=== PATIENT | male | born 1950 | race African-American/Black ===

== ENCOUNTER 2022-07-17 11:10 | Inpatient (IN) | payer MEDICARE, MEDICAID ==
[~2022-07-17] VITALS: Ht 182.9 cm; Wt 119.0 kg
[2022-07-17] MEDS ORDERED: SODIUM CHLORIDE 0.9% 1000ML BAG (SEPSIS BOLUS) IV ONE (11:45)
[2022-07-17] MEDS ORDERED: ACETAMINOPHEN 650MG SUPP PR STA (13:38)
[2022-07-17] MEDS ORDERED: CEFEPIME HCL 1000MG/VIAL INJ IV STA (13:38)
[2022-07-17 13:42] LABS: HEMATOCRIT. 33.1 % (42.0-52.0); HEMOGLOBIN. 10.6 g/dL (14.0-18.0); MEAN CORPUSCULAR HEMOGLOBIN 28.8 pg (28.0-32.0); MEAN CORPUSCULAR VOLUME 90.3 fL (80.0-94.0); MEAN PLATELET VOLUME 8.6 fl (7.4-10.4); PLATELET 138 x1000/uL (130-400); RED BLOOD CELL COUNT 3.67 mill/uL (4.7-6.1); RED CELL DISTRIBUTION WIDTH 18.6 % (11.6-14.6)
[2022-07-17] MEDS ORDERED: VANCOMYCIN 1G PREMIX 200 ML IV ONE (13:45)
[2022-07-17 13:55] LABS: CLARITY URINE CLOUDY (CLEAR); COLOR URINE YELLOW (YELLOW); KETONES URINE NEGATIVE (NEGATIVE); LEUKOCYTE ESTERASE URINE 2+ (NEGATIVE); NITRITE URINE NEGATIVE (NEGATIVE); OCCULT BLOOD URINE 2+ (NEGATIVE); PROTEIN URINE 2+ (NEGATIVE); SPECIFIC GRAVITY URINE 1.016 (1.005-1.030)
[2022-07-17 13:57] LABS: INR 1.2; PROTHROMBIN TIME 12.5 sec (9.6-11.0)
[2022-07-17 14:00] LABS: PLATELET ESTIMATE NORMAL
[2022-07-17 14:02] LABS: CHLORIDE 103 mEq/L (98-107)
[2022-07-17] MEDS ORDERED: CEFEPIME 1,000 MG in DEXTROSE 5% WATER 50 ML IV SCH (14:30)
[2022-07-17] MEDS ORDERED: METOPROLOL TARTRATE 5MG/5ML VIAL IV SCH (15:45)
[2022-07-17] MEDS ORDERED: SODIUM CHLORIDE 0.9% 1,000 ML IV ONE (15:45)
[2022-07-17 16:52] LABS: BG BASE EXCESS 5.5 mmol/L (-2.0-2.0); BG CARBOXYHEMOGLOBIN 0.5 % (0.5-1.5); BG DEOXYHEMOGLOBIN 1.2 % (0.0-5.0); BG FRACTION INSPIRED OXYGEN 28; BG HCO3 ACT 29.5 mmol/L (22.0-26.0); BG METHEMOGLOBIN 0.3 % (0.0-1.5); BG OXYGEN SATURATION 98.8 % (92.0-98.5); BG PCO2 40.7 mmHg (35.0-45.0); BG PH 7.478 (7.350-7.450); BG PO2 134.3 mmHg (75.0-100.0); BG SAMPLE SITE LEFT BRACHIAL; BG TOTAL HEMOGLOBIN 11.6 g/dL (12.0-18.0); BG VENT MODE COOL AEROSOL
[2022-07-17] MEDS: SODIUM CHLORIDE 3% FOR INH 4ML UD NEB INH SCH ×2 (17:30→23:30)
[2022-07-17] MEDS: IPRATROPIUM BROMIDE (0.02%) 0.5MG/2.5ML NEB HHN SCH ×2 (17:53→20:18)
[2022-07-17 18:33] LABS: BG BASE EXCESS 4.2 mmol/L (-2.0-2.0); BG CARBOXYHEMOGLOBIN 0.5 % (0.5-1.5); BG DEOXYHEMOGLOBIN 1.5 % (0.0-5.0); BG FRACTION INSPIRED OXYGEN 40; BG HCO3 ACT 27.7 mmol/L (22.0-26.0); BG METHEMOGLOBIN 0.3 % (0.0-1.5); BG OXYGEN SATURATION 98.5 % (92.0-98.5); BG OXYHEMOGLOBIN 97.7 % (94.0-97.0); BG PCO2 37.4 mmHg (35.0-45.0); BG PH 7.488 (7.350-7.450); BG PO2 112.9 mmHg (75.0-100.0); BG SAMPLE SITE LEFT BRACHIAL; BG TOTAL HEMOGLOBIN 10.7 g/dL (12.0-18.0); BG VENT MODE PRVC
[2022-07-17] MEDS: ACETYLCYSTEINE 200MG/ML 20% VIAL 4ML INH SCH (22:00)
[2022-07-17] MEDS ORDERED: PIPERACILLIN/TAZOBACTAM 3.375 G in DEXTROSE 5% WATER 50 ML IV SCH (22:00)
[2022-07-17] MEDS: PIPERACILLIN/TAZOBACTAM 3.375 G in DEXTROSE 5% WATER 50 ML IV SCH (23:08)
[2022-07-18] MEDS: PIPERACILLIN/TAZOBACTAM 3.375 G in DEXTROSE 5% WATER 50 ML IV SCH ×3 (07:48→22:59)
[2022-07-18] MEDS: ACETYLCYSTEINE 200MG/ML 20% VIAL 4ML INH SCH ×2 (08:07→16:27)
[2022-07-18] MEDS: IPRATROPIUM BROMIDE (0.02%) 0.5MG/2.5ML NEB HHN SCH ×4 (08:12→21:06)
[2022-07-18] MEDS: SODIUM CHLORIDE 3% FOR INH 4ML UD NEB INH SCH ×2 (08:12→12:50)
[2022-07-18] MEDS ORDERED: ACETAMINOPHEN 650MG SUPP PR NR (08:30)
[2022-07-18 08:32] LABS: BG BASE EXCESS 6.1 mmol/L (-2.0-2.0); BG CARBOXYHEMOGLOBIN 1.4 % (0.5-1.5); BG DEOXYHEMOGLOBIN 0.7 % (0.0-5.0); BG FRACTION INSPIRED OXYGEN 40; BG HCO3 ACT 29.5 mmol/L (22.0-26.0); BG OXYGEN SATURATION 99.3 % (92.0-98.5); BG OXYHEMOGLOBIN 97.9 % (94.0-97.0); BG PCO2 37.8 mmHg (35.0-45.0); BG PO2 127.7 mmHg (75.0-100.0); BG SAMPLE SITE LEFT BRACHIAL; BG TOTAL HEMOGLOBIN 9.1 g/dL (12.0-18.0); BG VENT MODE VENT PRVC
[2022-07-18] MEDS ORDERED: DILTIAZEM HCL 5MG/ML 5ML VIAL IV ONE (09:15)
[2022-07-18] MEDS ORDERED: SODIUM CHLORIDE 0.9% 500 ML IV ONE (09:15)
[2022-07-18 09:30] VITALS: BP 97/54
[2022-07-18 14:00] VITALS: BP 117/99
[2022-07-18 16:00] VITALS: BP 105/55
[2022-07-18 16:31] LABS: HEMATOCRIT. 28.1 % (42.0-52.0); HEMOGLOBIN. 9.1 g/dL (14.0-18.0); MEAN CORPUSCULAR HEMOGLOBIN 29.2 pg (28.0-32.0); MEAN CORPUSCULAR VOLUME 90.4 fL (80.0-94.0); MEAN PLATELET VOLUME 9.4 fl (7.4-10.4); PLATELET 132 x1000/uL (130-400); RED BLOOD CELL COUNT 3.11 mill/uL (4.7-6.1); RED CELL DISTRIBUTION WIDTH 18.3 % (11.6-14.6)
[2022-07-18 16:57] LABS: CHLORIDE 109 mEq/L (98-107)
[2022-07-18] MEDS: ENOXAPARIN 120MG/0.8ML SYR SUBCUT SCH (17:17)
[2022-07-18] MEDS: VANCOMYCIN 1.25GM PMX (XELLIA) 250 ML IV SCH (17:18)
[2022-07-18 18:00] VITALS: BP 100/67
[2022-07-18 18:15] LABS: PLATELET ESTIMATE NORMAL
[2022-07-18] MEDS: DILTIAZEM HCL 30MG TABLET PO SCH (19:06)
[2022-07-18 20:00] VITALS: BP 115/61
[2022-07-18] MEDS: LEVETIRACETAM 500MG/5ML CUP GT SCH (21:21)
[2022-07-18] MEDS: METOPROLOL TARTRATE 25MG TABLET PO SCH (21:21)
[2022-07-18 22:00] VITALS: BP 102/72
[2022-07-19] VITALS (30 sets, daily range): BP systolic 90–125; BP diastolic 36–80
[2022-07-19] MEDS: SODIUM CHLORIDE 3% FOR INH 4ML UD NEB INH SCH ×3 (00:17→15:53)
[2022-07-19] MEDS: DILTIAZEM HCL 30MG TABLET PO SCH ×4 (00:17→17:03)
[2022-07-19] MEDS: ACETYLCYSTEINE 200MG/ML 20% VIAL 4ML INH SCH ×3 (00:20→15:53)
[2022-07-19] MEDS: IPRATROPIUM BROMIDE (0.02%) 0.5MG/2.5ML NEB HHN SCH ×6 (04:47→23:56)
[2022-07-19] MEDS: PIPERACILLIN/TAZOBACTAM 3.375 G in DEXTROSE 5% WATER 50 ML IV SCH ×3 (05:47→21:19)
[2022-07-19] MEDS: METOPROLOL TARTRATE 25MG TABLET PO SCH ×2 (09:00→21:00)
[2022-07-19] MEDS: ENOXAPARIN 120MG/0.8ML SYR SUBCUT SCH ×2 (11:23→21:18)
[2022-07-19] MEDS: LEVETIRACETAM 500MG/5ML CUP GT SCH ×2 (11:24→21:18)
[2022-07-19] MEDS: PANTOPRAZOLE SODIUM 40 MG/VIAL IV SCH (11:24)
[2022-07-19] MEDS: VANCOMYCIN 1.25GM PMX (XELLIA) 250 ML IV SCH (11:26)
[2022-07-19 11:28] LABS: HEMATOCRIT. 27.2 % (42.0-52.0); HEMOGLOBIN. 8.5 g/dL (14.0-18.0); MEAN CORPUSCULAR HEMOGLOBIN 28.8 pg (28.0-32.0); MEAN CORPUSCULAR VOLUME 92.4 fL (80.0-94.0); MEAN PLATELET VOLUME 9.9 fl (7.4-10.4); PLATELET 139 x1000/uL (130-400); RED BLOOD CELL COUNT 2.95 mill/uL (4.7-6.1); RED CELL DISTRIBUTION WIDTH 18.6 % (11.6-14.6)
[2022-07-19] MEDS ORDERED: SODIUM CHLORIDE 0.9% 500 ML IV ONE (12:30)
[2022-07-19] MEDS ORDERED: NOREPINEPHRINE 32 MG in DEXT 5% WATER 218 ML IV PRN (13:00)
[2022-07-19] MEDS ORDERED: IPRATROPIUM/ALBUTEROL 0.5-3(2.5)MG/3ML NEB HHN PRN (14:15)
[2022-07-19 23:09] LABS: PLATELET ESTIMATE NORMAL
[2022-07-20] VITALS (42 sets, daily range): BP systolic 104–149; BP diastolic 60–94
[2022-07-20] MEDS: ACETYLCYSTEINE 200MG/ML 20% VIAL 4ML INH SCH ×3 (00:04→14:00)
[2022-07-20] MEDS: SODIUM CHLORIDE 3% FOR INH 4ML UD NEB INH SCH ×3 (00:04→17:25)
[2022-07-20] MEDS: IPRATROPIUM BROMIDE (0.02%) 0.5MG/2.5ML NEB HHN SCH ×5 (05:12→20:15)
[2022-07-20] MEDS: PIPERACILLIN/TAZOBACTAM 3.375 G in DEXTROSE 5% WATER 50 ML IV SCH ×3 (06:30→21:24)
[2022-07-20] MEDS: DILTIAZEM HCL 30MG TABLET PO SCH ×5 (06:30→22:46)
[2022-07-20] MEDS: METOPROLOL TARTRATE 25MG TABLET PO SCH ×2 (08:19→20:31)
[2022-07-20] MEDS: LEVETIRACETAM 500MG/5ML CUP GT SCH ×2 (08:20→20:30)
[2022-07-20] MEDS: PANTOPRAZOLE SODIUM 40 MG/VIAL IV SCH (08:20)
[2022-07-20] MEDS: ENOXAPARIN 120MG/0.8ML SYR SUBCUT SCH ×2 (09:13→20:41)
[2022-07-20] MEDS ORDERED: LIDOCAINE HCL/PF 1% 10 MG/ML 5ML VIAL ONE (11:16)
[2022-07-20] MEDS: VANCOMYCIN 1.25GM PMX (XELLIA) 250 ML IV SCH (13:04)
[2022-07-20] MEDS ORDERED: ACETAMINOPHEN 650MG/20.3ML UDC GT PRN (17:30)
[2022-07-20] MEDS: METHYLPREDNISOLONE SOD SUCC 40 MG/ML VIAL IV SCH (20:05)
[2022-07-21] VITALS (14 sets, daily range): BP systolic 108–142; BP diastolic 59–87
[2022-07-21] MEDS: ACETYLCYSTEINE 200MG/ML 20% VIAL 4ML INH SCH ×3 (00:24→16:49)
[2022-07-21] MEDS: IPRATROPIUM BROMIDE (0.02%) 0.5MG/2.5ML NEB HHN SCH ×6 (00:24→20:27)
[2022-07-21] MEDS: METHYLPREDNISOLONE SOD SUCC 40 MG/ML VIAL IV SCH ×3 (03:44→20:18)
[2022-07-21] MEDS: PIPERACILLIN/TAZOBACTAM 3.375 G in DEXTROSE 5% WATER 50 ML IV SCH ×3 (05:00→21:57)
[2022-07-21] MEDS: DILTIAZEM HCL 30MG TABLET PO SCH ×4 (05:00→23:31)
[2022-07-21 07:54] LABS: HEMATOCRIT. 25.5 % (42.0-52.0); HEMOGLOBIN. 8.4 g/dL (14.0-18.0); MEAN CORPUSCULAR HEMOGLOBIN 29.2 pg (28.0-32.0); MEAN CORPUSCULAR VOLUME 89.2 fL (80.0-94.0); MEAN PLATELET VOLUME 9.4 fl (7.4-10.4); PLATELET 213 x1000/uL (130-400); RED BLOOD CELL COUNT 2.86 mill/uL (4.7-6.1); RED CELL DISTRIBUTION WIDTH 17.9 % (11.6-14.6)
[2022-07-21] MEDS: LEVETIRACETAM 500MG/5ML CUP GT SCH ×2 (09:08→20:18)
[2022-07-21] MEDS: PANTOPRAZOLE SODIUM 40 MG/VIAL IV SCH (09:08)
[2022-07-21] MEDS: METOPROLOL TARTRATE 25MG TABLET PO SCH ×2 (09:09→20:19)
[2022-07-21] MEDS: ENOXAPARIN 120MG/0.8ML SYR SUBCUT SCH ×2 (09:09→20:19)
[2022-07-21 10:40] LABS: CHLORIDE 109 mEq/L (98-107)
[2022-07-21 11:22] LABS: PLATELET ESTIMATE NORMAL
[2022-07-21] MEDS: VANCOMYCIN 1.25GM PMX (XELLIA) 250 ML IV SCH (12:12)
[2022-07-22] VITALS (12 sets, daily range): BP systolic 98–148; BP diastolic 59–98
[2022-07-22] MEDS: IPRATROPIUM BROMIDE (0.02%) 0.5MG/2.5ML NEB HHN SCH ×3 (00:40→08:30)
[2022-07-22] MEDS: ACETYLCYSTEINE 200MG/ML 20% VIAL 4ML INH SCH ×3 (00:40→16:20)
[2022-07-22] MEDS: METHYLPREDNISOLONE SOD SUCC 40 MG/ML VIAL IV SCH ×3 (03:36→20:00)
[2022-07-22] MEDS: DILTIAZEM HCL 30MG TABLET PO SCH ×3 (05:09→17:23)
[2022-07-22] MEDS: PIPERACILLIN/TAZOBACTAM 3.375 G in DEXTROSE 5% WATER 50 ML IV SCH ×3 (05:46→21:49)
[2022-07-22] MEDS ORDERED: VANCOMYCIN 1250MG in DEXTROSE 5% WATER 250ML IV SCH (06:00)
[2022-07-22] MEDS: LEVETIRACETAM 500MG/5ML CUP GT SCH ×2 (08:42→21:45)
[2022-07-22] MEDS: ENOXAPARIN 120MG/0.8ML SYR SUBCUT SCH ×2 (08:42→21:47)
[2022-07-22] MEDS: PANTOPRAZOLE SODIUM 40 MG/VIAL IV SCH (08:42)
[2022-07-22] MEDS: METOPROLOL TARTRATE 25MG TABLET PO SCH ×2 (08:43→21:00)
[2022-07-22] MEDS: IPRATROPIUM/ALBUTEROL 0.5-3(2.5)MG/3ML NEB HHN SCH ×2 (16:20→20:29)
[2022-07-23] VITALS (12 sets, daily range): BP systolic 98–141; BP diastolic 60–98
[2022-07-23] MEDS: IPRATROPIUM/ALBUTEROL 0.5-3(2.5)MG/3ML NEB HHN SCH ×2 (02:21→09:00)
[2022-07-23] MEDS: DILTIAZEM HCL 30MG TABLET PO SCH ×4 (06:46→17:58)
[2022-07-23] MEDS: PIPERACILLIN/TAZOBACTAM 3.375 G in DEXTROSE 5% WATER 50 ML IV SCH ×2 (06:46→14:05)
[2022-07-23] MEDS: METHYLPREDNISOLONE SOD SUCC 40 MG/ML VIAL IV SCH ×2 (07:30→12:34)
[2022-07-23] MEDS: LEVETIRACETAM 500MG/5ML CUP GT SCH (09:00)
[2022-07-23] MEDS: METOPROLOL TARTRATE 25MG TABLET PO SCH (09:00)
[2022-07-23] MEDS: PANTOPRAZOLE SODIUM 40 MG/VIAL IV SCH (09:00)
[2022-07-23] MEDS: ENOXAPARIN 120MG/0.8ML SYR SUBCUT SCH (09:00)
[2022-07-23] MEDS ORDERED: VANCOMYCIN 1250MG in DEXTROSE 5% WATER 250ML IV SCH (10:00)
== END 2022-07-23 23:19 | DRG 870 ==
LOC: EDBEDREQ 13:42 → EDBEDREQTM 13:42 → EDBEDREQSVC 13:42 → ER 13:53 → MICUSO 17:36 → EDBEDREQSVC 17:39 → EDBEDREQ 17:39 → EDBEDREQTM 17:39 → 5EST 07-18 13:57 → MICUSO 07-19 12:15 → 5EST 07-20 10:06
PROVIDERS: ADMIT Internal Medicine; ATTEND Internal Medicine
PROC: 5A1955Z Respiratory Ventilation, Greater than 96 Consecutive Hours (ICD-10-PCS; principal; 2022-07-17)
PROC: 05HY33Z Insertion of Infusion Device into Upper Vein, Percutaneous Approach (ICD-10-PCS; 2022-07-20)
DX: A41.51 Sepsis due to Escherichia coli [E. coli] (principal); E43 Unspecified severe protein-calorie malnutrition; J18.9 Pneumonia, unspecified organism; J96.21 Acute and chronic respiratory failure with hypoxia; G92.8 Other toxic encephalopathy; N39.0 Urinary tract infection, site not specified; I48.20 Chronic atrial fibrillation, unspecified; E87.20 Acidosis, unspecified; N17.9 Acute kidney failure, unspecified; I31.39 Other pericardial effusion (noninflammatory); R65.20 Severe sepsis without septic shock; Z20.822 Contact with and (suspected) exposure to COVID-19; E78.00 Pure hypercholesterolemia, unspecified; D64.9 Anemia, unspecified; G40.909 Epilepsy, unspecified, not intractable, without status epilepticus; N31.9 Neuromuscular dysfunction of bladder, unspecified; I11.9 Hypertensive heart disease without heart failure; R13.10 Dysphagia, unspecified; Z93.0 Tracheostomy status; Z68.35 Body mass index [BMI] 35.0-35.9, adult; Z88.8 Allergy status to other drugs, medicaments and biological substances; Z79.01 Long term (current) use of anticoagulants; Z86.73 Personal history of transient ischemic attack (TIA), and cerebral infarction without residual deficits; Z93.1 Gastrostomy status
CPT/HCPCS: 36415; 36573; 36600; 70490; 71045; 80048; 80053; 80202; 81003; 82375; 82805; 82962; 83605; 84145; 85025; 87070; 87077; 87186; 87426; 87804; 93005; 93306; 94002; 94003; 94640; 99291; A6261; C1725; C9113; C9803; J0692; J1650; J2543; J2920; J3370; J3490; J7030; J7060; J7608; A4315

== ENCOUNTER 2022-08-17 02:13 | Inpatient (IN) | payer MEDICARE, MEDICAID ==
[~2022-08-17] VITALS: Ht 190.5 cm; Wt 109.3 kg
[2022-08-17] VITALS (12 sets, daily range): BP systolic 85–115; BP diastolic 59–86
[2022-08-17] MEDS ORDERED: SODIUM CHLORIDE 0.9% 1,000 ML IV ONE ×2 (02:45→13:00)
[2022-08-17 03:56] LABS: HEMATOCRIT. 23.6 % (42.0-52.0); HEMOGLOBIN. 7.9 g/dL (14.0-18.0); MEAN CORPUSCULAR HEMOGLOBIN 30.1 pg (28.0-32.0); MEAN CORPUSCULAR VOLUME 89.9 fL (80.0-94.0); MEAN PLATELET VOLUME 7.2 fl (7.4-10.4); PLATELET 385 x1000/uL (130-400); RED BLOOD CELL COUNT 2.63 mill/uL (4.7-6.1); RED CELL DISTRIBUTION WIDTH 17.3 % (11.6-14.6)
[2022-08-17 04:06] LABS: INR 1.1; PROTHROMBIN TIME 11.6 sec (9.6-11.0)
[2022-08-17 04:15] LABS: CHLORIDE 105 mEq/L (98-107)
[2022-08-17 04:17] LABS: CLARITY URINE CLEAR (CLEAR); COLOR URINE YELLOW (YELLOW); KETONES URINE NEGATIVE (NEGATIVE); LEUKOCYTE ESTERASE URINE 3+ (NEGATIVE); NITRITE URINE NEGATIVE (NEGATIVE); OCCULT BLOOD URINE NEGATIVE (NEGATIVE); PROTEIN URINE 1+ (NEGATIVE); SPECIFIC GRAVITY URINE 1.012 (1.005-1.030)
[2022-08-17] MEDS ORDERED: DILTIAZEM HCL 5MG/ML 5ML VIAL IV ONE ×3 (04:30→08:00)
[2022-08-17] MEDS ORDERED: CEFTRIAXONE 1 G PREMIX 50 ML IV NR (05:00)
[2022-08-17 05:59] LABS: PLATELET ESTIMATE NORMAL
[2022-08-17] MEDS ORDERED: DILTIAZEM HCL 60MG TABLET PO ONE (08:00)
[2022-08-17] MEDS: DILTIAZEM HCL 30MG TABLET PO SCH ×3 (11:36→23:25)
[2022-08-17 14:43] LABS: BG BASE EXCESS 5.1 mmol/L (-2.0-2.0); BG CARBOXYHEMOGLOBIN 0.2 % (0.5-1.5); BG DEOXYHEMOGLOBIN 1.2 % (0.0-5.0); BG FRACTION INSPIRED OXYGEN 40; BG HCO3 ACT 29.7 mmol/L (22.0-26.0); BG METHEMOGLOBIN 0.3 % (0.0-1.5); BG OXYGEN SATURATION 98.8 % (92.0-98.5); BG OXYHEMOGLOBIN 98.3 % (94.0-97.0); BG PCO2 44.7 mmHg (35.0-45.0); BG PH 7.441 (7.350-7.450); BG PO2 150.3 mmHg (75.0-100.0); BG SAMPLE SITE ALINE; BG TOTAL HEMOGLOBIN 7.5 g/dL (12.0-18.0); BG VENT MODE VENT - AC
[2022-08-17] MEDS ORDERED: DIGOXIN 500MCG/2ML AMP IV NR (14:55)
[2022-08-17] MEDS ORDERED: DIVA500T51 PO (16:57)
[2022-08-17] MEDS ORDERED: DILTIAZEM HCL 5MG/ML 5ML VIAL IV NR (17:30)
[2022-08-17] MEDS ORDERED: DIGOXIN 500MCG/2ML AMP IV PRN (18:00)
[2022-08-17] MEDS: ENOXAPARIN 120MG/0.8ML SYR SUBCUT SCH (18:21)
[2022-08-17] MEDS ORDERED: DILTIAZEM HCL 125 MG in DEXT 5% WATER 100 ML IV PRN (18:56)
[2022-08-17] MEDS ORDERED: DILTIAZEM HCL 125 MG in DEXT 5% WATER 100 ML IV SCH (20:00)
[2022-08-17] MEDS: LEVETIRACETAM 500MG/5ML CUP PO SCH (20:58)
[2022-08-17] MEDS: RISPERIDONE 1MG TABLET PO SCH (20:58)
[2022-08-17] MEDS: METOPROLOL TARTRATE 25MG TABLET PO SCH (21:00)
[2022-08-17] MEDS: DILTIAZEM HCL 125 MG in DEXT 5% WATER 100 ML IV SCH (21:23)
[2022-08-18] VITALS (33 sets, daily range): BP systolic 76–140; BP diastolic 40–80
[2022-08-18] MEDS: DILTIAZEM HCL 30MG TABLET PO SCH ×3 (05:12→18:39)
[2022-08-18] MEDS: ENOXAPARIN 120MG/0.8ML SYR SUBCUT SCH ×2 (05:47→18:53)
[2022-08-18] MEDS: DILTIAZEM HCL 125 MG in DEXT 5% WATER 100 ML IV SCH (08:30)
[2022-08-18] MEDS: METOPROLOL TARTRATE 25MG TABLET PO SCH ×2 (09:00→20:19)
[2022-08-18] MEDS: LEVETIRACETAM 500MG/5ML CUP PO SCH ×2 (09:07→20:18)
[2022-08-18] MEDS: PANTOPRAZOLE SODIUM 40 MG/VIAL IV SCH (09:07)
[2022-08-18] MEDS: DIVALPROEX SODIUM 500MG ER TABLET PO SCH (09:08)
[2022-08-18] MEDS: RISPERIDONE 1MG TABLET PO SCH ×2 (09:09→20:19)
[2022-08-19] VITALS (28 sets, daily range): BP systolic 93–132; BP diastolic 52–87
[2022-08-19] MEDS: DILTIAZEM HCL 30MG TABLET PO SCH ×4 (02:21→17:19)
[2022-08-19] MEDS: DILTIAZEM HCL 125 MG in DEXT 5% WATER 100 ML IV SCH ×3 (04:09→22:36)
[2022-08-19] MEDS: ENOXAPARIN 120MG/0.8ML SYR SUBCUT SCH ×2 (06:41→17:19)
[2022-08-19] MEDS: PANTOPRAZOLE SODIUM 40 MG/VIAL IV SCH (09:44)
[2022-08-19] MEDS: LEVETIRACETAM 500MG/5ML CUP PO SCH ×2 (09:44→21:00)
[2022-08-19] MEDS: DIVALPROEX SODIUM 500MG ER TABLET PO SCH (09:45)
[2022-08-19] MEDS: RISPERIDONE 1MG TABLET PO SCH ×2 (09:45→22:34)
[2022-08-19] MEDS: METOPROLOL TARTRATE 25MG TABLET PO SCH ×2 (09:46→22:34)
[2022-08-19 18:00] LABS: HEMATOCRIT. 24.1 % (42.0-52.0); HEMOGLOBIN. 7.7 g/dL (14.0-18.0); MEAN CORPUSCULAR HEMOGLOBIN 28.9 pg (28.0-32.0); MEAN CORPUSCULAR VOLUME 90.3 fL (80.0-94.0); MEAN PLATELET VOLUME 6.9 fl (7.4-10.4); PLATELET 438 x1000/uL (130-400); RED BLOOD CELL COUNT 2.67 mill/uL (4.7-6.1); RED CELL DISTRIBUTION WIDTH 17.8 % (11.6-14.6)
[2022-08-19 18:19] LABS: CHLORIDE 107 mEq/L (98-107)
[2022-08-19] MEDS: IPRATROPIUM BROMIDE (0.02%) 0.5MG/2.5ML NEB HHN PRN (20:14)
[2022-08-19 23:44] LABS: PLATELET ESTIMATE SLIGHTLY INCREASED
[2022-08-20] VITALS (16 sets, daily range): BP systolic 77–117; BP diastolic 49–67
[2022-08-20] MEDS: DILTIAZEM HCL 30MG TABLET PO SCH ×4 (06:00→18:00)
[2022-08-20] MEDS: DIVALPROEX SODIUM 500MG ER TABLET PO SCH (08:15)
[2022-08-20] MEDS: LEVETIRACETAM 500MG/5ML CUP PO SCH ×2 (08:15→21:33)
[2022-08-20] MEDS: RISPERIDONE 1MG TABLET PO SCH ×2 (08:15→21:34)
[2022-08-20] MEDS: ENOXAPARIN 120MG/0.8ML SYR SUBCUT SCH (08:15)
[2022-08-20] MEDS: PANTOPRAZOLE SODIUM 40 MG/VIAL IV SCH (08:15)
[2022-08-20] MEDS: METOPROLOL TARTRATE 25MG TABLET PO SCH ×2 (08:16→21:00)
[2022-08-20] MEDS: IPRATROPIUM BROMIDE (0.02%) 0.5MG/2.5ML NEB HHN PRN ×3 (09:22→16:51)
[2022-08-20 09:32] LABS: MEAN CORPUSCULAR HEMOGLOBIN 29.8 pg (28.0-32.0); PLATELET 426 x1000/uL (130-400); RED BLOOD CELL COUNT 2.33 mill/uL (4.7-6.1); RED CELL DISTRIBUTION WIDTH 17.8 % (11.6-14.6)
[2022-08-20 09:52] LABS: CHLORIDE 105 mEq/L (98-107)
[2022-08-20] MEDS: DILTIAZEM HCL 125 MG in DEXT 5% WATER 100 ML IV SCH (10:35)
[2022-08-21] VITALS (12 sets, daily range): BP systolic 85–113; BP diastolic 40–69
[2022-08-21] MEDS: DILTIAZEM HCL 30MG TABLET PO SCH ×4 (00:25→17:02)
[2022-08-21] MEDS: DILTIAZEM HCL 125 MG in DEXT 5% WATER 100 ML IV SCH ×2 (00:51→12:37)
[2022-08-21 04:18] LABS: PLATELET ESTIMATE INCREASED
[2022-08-21] MEDS: PANTOPRAZOLE SODIUM 40 MG/VIAL IV SCH (08:40)
[2022-08-21] MEDS: LEVETIRACETAM 500MG/5ML CUP PO SCH ×2 (08:40→22:18)
[2022-08-21] MEDS: METOPROLOL TARTRATE 25MG TABLET PO SCH ×2 (08:40→21:00)
[2022-08-21] MEDS: DIVALPROEX SODIUM 500MG ER TABLET PO SCH (08:40)
[2022-08-21] MEDS: RISPERIDONE 1MG TABLET PO SCH ×2 (08:40→22:18)
[2022-08-21] MEDS: LEVOFLOXACIN 500MG PREMIX 100 ML IV SCH (12:37)
[2022-08-21 18:24] LABS: HEMATOCRIT. 22.2 % (42.0-52.0); HEMOGLOBIN. 7.4 g/dL (14.0-18.0); MEAN CORPUSCULAR HEMOGLOBIN 29.6 pg (28.0-32.0); MEAN CORPUSCULAR VOLUME 88.4 fL (80.0-94.0); MEAN PLATELET VOLUME 6.6 fl (7.4-10.4); PLATELET 375 x1000/uL (130-400); RED BLOOD CELL COUNT 2.51 mill/uL (4.7-6.1); RED CELL DISTRIBUTION WIDTH 17.8 % (11.6-14.6)
[2022-08-21 18:38] LABS: INR 1.1; PROTHROMBIN TIME 11.4 sec (9.6-11.0)
[2022-08-21] MEDS: IPRATROPIUM BROMIDE (0.02%) 0.5MG/2.5ML NEB HHN PRN (19:48)
[2022-08-21 21:32] LABS: PLATELET ESTIMATE NORMAL
[2022-08-22] VITALS (13 sets, daily range): BP systolic 71–120; BP diastolic 47–73
[2022-08-22] MEDS: DILTIAZEM HCL 125 MG in DEXT 5% WATER 100 ML IV SCH (01:07)
[2022-08-22] MEDS: DILTIAZEM HCL 30MG TABLET PO SCH ×3 (01:07→23:53)
[2022-08-22] MEDS: IPRATROPIUM BROMIDE (0.02%) 0.5MG/2.5ML NEB HHN PRN (08:04)
[2022-08-22 08:27] LABS: MEAN CORPUSCULAR HEMOGLOBIN 28.9 pg (28.0-32.0); MEAN CORPUSCULAR VOLUME 88.7 fL (80.0-94.0); MEAN PLATELET VOLUME 6.7 fl (7.4-10.4); PLATELET 379 x1000/uL (130-400); RED BLOOD CELL COUNT 2.33 mill/uL (4.7-6.1); RED CELL DISTRIBUTION WIDTH 17.8 % (11.6-14.6)
[2022-08-22 08:40] LABS: CHLORIDE 106 mEq/L (98-107)
[2022-08-22 08:41] LABS: HEMATOCRIT. 20.7 % (42.0-52.0); HEMOGLOBIN. 6.7 g/dL (14.0-18.0)
[2022-08-22] MEDS: DIVALPROEX SODIUM 500MG ER TABLET PO SCH (09:00)
[2022-08-22] MEDS: METOPROLOL TARTRATE 25MG TABLET PO SCH ×2 (09:00→20:53)
[2022-08-22] MEDS: RISPERIDONE 1MG TABLET PO SCH ×2 (09:15→20:54)
[2022-08-22] MEDS: LEVETIRACETAM 500MG/5ML CUP PO SCH ×2 (09:15→20:54)
[2022-08-22] MEDS: LEVOFLOXACIN 500MG PREMIX 100 ML IV SCH (09:15)
[2022-08-22] MEDS: PANTOPRAZOLE SODIUM 40 MG/VIAL IV SCH (09:15)
[2022-08-23] VITALS (12 sets, daily range): BP systolic 98–125; BP diastolic 53–79
[2022-08-23 03:29] LABS: HEMATOCRIT. 26.1 % (42.0-52.0); HEMOGLOBIN. 8.5 g/dL (14.0-18.0); MEAN CORPUSCULAR HEMOGLOBIN 29.1 pg (28.0-32.0); MEAN CORPUSCULAR VOLUME 88.6 fL (80.0-94.0); MEAN PLATELET VOLUME 6.4 fl (7.4-10.4); PLATELET 389 x1000/uL (130-400); RED BLOOD CELL COUNT 2.94 mill/uL (4.7-6.1); RED CELL DISTRIBUTION WIDTH 17.8 % (11.6-14.6)
[2022-08-23] MEDS: DILTIAZEM HCL 30MG TABLET PO SCH ×4 (05:40→23:15)
[2022-08-23] MEDS: LEVETIRACETAM 500MG/5ML CUP PO SCH ×2 (08:36→20:41)
[2022-08-23] MEDS: PANTOPRAZOLE SODIUM 40 MG/VIAL IV SCH (08:37)
[2022-08-23] MEDS: RISPERIDONE 1MG TABLET PO SCH ×2 (08:38→20:41)
[2022-08-23] MEDS: METOPROLOL TARTRATE 25MG TABLET PO SCH ×2 (08:39→20:41)
[2022-08-23] MEDS: DIVALPROEX SODIUM 500MG ER TABLET PO SCH (08:59)
[2022-08-23 09:44] LABS: PLATELET ESTIMATE NORMAL
[2022-08-23] MEDS: LEVOFLOXACIN 500MG PREMIX 100 ML IV SCH (10:03)
[2022-08-23] MEDS: FAMOTIDINE 20MG/2ML VIAL IV SCH (20:49)
[2022-08-24] VITALS (14 sets, daily range): BP systolic 92–137; BP diastolic 44–81
[2022-08-24] MEDS: DILTIAZEM HCL 30MG TABLET PO SCH ×4 (05:10→17:30)
[2022-08-24 09:39] LABS: PLATELET ESTIMATE NORMAL
[2022-08-24] MEDS: FAMOTIDINE 20MG/2ML VIAL IV SCH ×2 (09:51→20:47)
[2022-08-24] MEDS: LEVETIRACETAM 500MG/5ML CUP PO SCH (09:51)
[2022-08-24] MEDS: DIVALPROEX SODIUM 500MG ER TABLET PO SCH (09:51)
[2022-08-24] MEDS: LEVOFLOXACIN 500MG PREMIX 100 ML IV SCH (09:51)
[2022-08-24] MEDS: METOPROLOL TARTRATE 25MG TABLET PO SCH ×2 (09:51→20:46)
[2022-08-24] MEDS: RISPERIDONE 1MG TABLET PO SCH ×2 (09:51→20:46)
[2022-08-24] MEDS ORDERED: DIVALPROEX SODIUM 500MG ER TABLET PO SCH (17:00)
[2022-08-24 18:43] LABS: BG BASE EXCESS 0.7 mmol/L (-2.0-2.0); BG CARBOXYHEMOGLOBIN 0.3 % (0.5-1.5); BG DEOXYHEMOGLOBIN 3.3 % (0.0-5.0); BG FRACTION INSPIRED OXYGEN 35; BG HCO3 ACT 24.5 mmol/L (22.0-26.0); BG METHEMOGLOBIN 0.3 % (0.0-1.5); BG OXYGEN SATURATION 96.7 % (92.0-98.5); BG OXYHEMOGLOBIN 96.1 % (94.0-97.0); BG PH 7.451 (7.350-7.450); BG PO2 91.9 mmHg (75.0-100.0); BG SAMPLE SITE LEFT BRACHIAL; BG TOTAL HEMOGLOBIN 9.1 g/dL (12.0-18.0); BG VENT MODE VENT - SIMV
== END 2022-08-24 23:30 | DRG 870 ==
LOC: ER 02:15 → 5EST 05:07 → ENRESERV 06:35 → EDBEDREQ 08:54
PROVIDERS: ADMIT Internal Medicine; ATTEND Internal Medicine
PROC: 5A1955Z Respiratory Ventilation, Greater than 96 Consecutive Hours (ICD-10-PCS; principal; 2022-08-17)
PROC: 30233N1 Transfusion of Nonautologous Red Blood Cells into Peripheral Vein, Percutaneous Approach (ICD-10-PCS; 2022-08-20)
DX: A41.52 Sepsis due to Pseudomonas (principal); E43 Unspecified severe protein-calorie malnutrition; J18.9 Pneumonia, unspecified organism; E87.20 Acidosis, unspecified; J96.10 Chronic respiratory failure, unspecified whether with hypoxia or hypercapnia; I31.39 Other pericardial effusion (noninflammatory); N39.0 Urinary tract infection, site not specified; G93.40 Encephalopathy, unspecified; Z99.11 Dependence on respirator [ventilator] status; G81.94 Hemiplegia, unspecified affecting left nondominant side; R13.10 Dysphagia, unspecified; Z20.822 Contact with and (suspected) exposure to COVID-19; E78.00 Pure hypercholesterolemia, unspecified; N31.9 Neuromuscular dysfunction of bladder, unspecified; I48.0 Paroxysmal atrial fibrillation; I10 Essential (primary) hypertension; D64.9 Anemia, unspecified; F20.9 Schizophrenia, unspecified; E03.9 Hypothyroidism, unspecified; I34.81 Nonrheumatic mitral (valve) annulus calcification; Z79.01 Long term (current) use of anticoagulants; Z86.73 Personal history of transient ischemic attack (TIA), and cerebral infarction without residual deficits; Z93.0 Tracheostomy status; Z93.1 Gastrostomy status
CPT/HCPCS: 36415; 36600; 71045; 80048; 80053; 81003; 82375; 82805; 82962; 83605; 84145; 84484; 85025; 85384; 86850; 86900; 86920; 87077; 87186; 87426; 93005; 93306; 94003; 99285; C9113; J0696; J1160; J1650; J1956; J3490; J7030; J7060; P9016

== ENCOUNTER 2022-10-08 16:08 | Inpatient (IN) | payer MEDICARE, MEDICAID ==
[~2022-10-08] VITALS: Ht 177.8 cm; Wt 99.4 kg
[~2022-10-08 16:08] MED LIST: DIVA500T51 PO
[2022-10-08] MEDS ORDERED: ONDANSETRON HCL 4MG/2ML INJ IV STA (16:28)
[2022-10-08] MEDS ORDERED: SODIUM CHLORIDE 0.9% 1,000 ML IV ONE (16:30)
[2022-10-08] MEDS ORDERED: PANTOPRAZOLE SODIUM 40 MG/VIAL IV ONE (16:45)
[2022-10-08 18:01] LABS: HEMATOCRIT. 35.4 % (42.0-52.0); HEMOGLOBIN. 11.6 g/dL (14.0-18.0); MEAN CORPUSCULAR HEMOGLOBIN 28.6 pg (28.0-32.0); MEAN CORPUSCULAR VOLUME 87.1 fL (80.0-94.0); MEAN PLATELET VOLUME 7.9 fl (7.4-10.4); PLATELET 320 x1000/uL (130-400); RED BLOOD CELL COUNT 4.07 mill/uL (4.7-6.1); RED CELL DISTRIBUTION WIDTH 16.4 % (11.6-14.6)
[2022-10-08] MEDS ORDERED: ONDANSETRON HCL 4MG/2ML INJ ONE (18:04)
[2022-10-08 18:18] LABS: CHLORIDE 93 mEq/L (98-107)
[2022-10-08 18:29] LABS: ETHANOL BLOOD < 10 mg/dL
[2022-10-08 18:58] LABS: PLATELET ESTIMATE NORMAL
[2022-10-08] MEDS ORDERED: CEFTRIAXONE 1 G PREMIX 50 ML IV ONE (19:30)
[2022-10-08 21:14] LABS: PROTHROMBIN TIME 11.2 sec (9.6-11.0)
[2022-10-09] VITALS (8 sets, daily range): BP systolic 82–120; BP diastolic 51–70
[2022-10-09] MEDS ORDERED: INFLUENZA VACCINE 05/PF 0.5 ML SYRINGE IM ONE (14:45)
[2022-10-09] MEDS ORDERED: PNEUMOCOCCAL 23-VAL P-SAC VAC 0.5 ML IM ONE (14:45)
[2022-10-09] MEDS ORDERED: IPRATROPIUM/ALBUTEROL 0.5-3(2.5)MG/3ML NEB HHN PRN (15:15)
[2022-10-09] MEDS ORDERED: IPRATROPIUM BROMIDE (0.02%) 0.5MG/2.5ML NEB HHN PRN (15:30)
[2022-10-09] MEDS ORDERED: ALBUTEROL (0.083%) 2.5MG/3ML NEB HHN PRN (15:30)
[2022-10-09 15:38] LABS: BG BASE EXCESS 10.2 mmol/L (-2.0-2.0); BG CARBOXYHEMOGLOBIN 0.3 % (0.5-1.5); BG DEOXYHEMOGLOBIN 0.6 % (0.0-5.0); BG METHEMOGLOBIN 0.1 % (0.0-1.5); BG OXYGEN SATURATION 99.4 % (92.0-98.5); BG PCO2 42.6 mmHg (35.0-45.0); BG PO2 255.5 mmHg (75.0-100.0); BG SAMPLE SITE RIGHT RADIAL; BG TOTAL HEMOGLOBIN 10.9 g/dL (12.0-18.0); BG VENT MODE VENT - SIMV
[2022-10-09] MEDS ORDERED: PANT40TA51 MT (16:17)
[2022-10-09] MEDS ORDERED: LEVE500T19 MT (16:17)
[2022-10-09] MEDS ORDERED: DILT30TA3 PO (16:17)
[2022-10-09] MEDS ORDERED: DIVA125C2 MT (16:17)
[2022-10-09] MEDS ORDERED: LANSOPRAZOLE 30MG DR CAPSULE GT SCH (16:30)
[2022-10-09] MEDS ORDERED: PANTOPRAZOLE 40MG DR TABLET PO SCH (16:30)
[2022-10-09] MEDS: DILTIAZEM HCL 30MG TABLET PO SCH (16:46)
[2022-10-09] MEDS: LEVETIRACETAM 500MG/5ML CUP GT SCH (17:15)
[2022-10-09] MEDS: DIVALPROEX SODIUM 125MG SPRINKLE CAPSULE GT SCH (17:15)
[2022-10-09] MEDS: DIGOXIN 500MCG/2ML AMP IV SCH ×2 (17:43→22:03)
[2022-10-09] MEDS ORDERED: IPRATROPIUM/ALBUTEROL 0.5-3(2.5)MG/3ML NEB HHN SCH (18:00)
[2022-10-09] MEDS ORDERED: DILTIAZEM HCL 30MG TABLET PO SCH (18:00)
[2022-10-09] MEDS: ALBUTEROL (0.083%) 2.5MG/3ML NEB HHN SCH (18:00)
[2022-10-09] MEDS: IPRATROPIUM BROMIDE (0.02%) 0.5MG/2.5ML NEB HHN SCH (20:44)
[2022-10-10] VITALS (13 sets, daily range): BP systolic 77–105; BP diastolic 46–68
[2022-10-10] MEDS: IPRATROPIUM BROMIDE (0.02%) 0.5MG/2.5ML NEB HHN SCH ×4 (01:58→20:24)
[2022-10-10] MEDS: ALBUTEROL (0.083%) 2.5MG/3ML NEB HHN SCH ×4 (01:58→20:24)
[2022-10-10] MEDS: DILTIAZEM HCL 30MG TABLET PO SCH ×4 (06:06→17:23)
[2022-10-10 06:32] LABS: HEMATOCRIT. 28.1 % (42.0-52.0); HEMOGLOBIN. 9.2 g/dL (14.0-18.0); MEAN CORPUSCULAR HEMOGLOBIN 28.9 pg (28.0-32.0); MEAN CORPUSCULAR VOLUME 87.8 fL (80.0-94.0); MEAN PLATELET VOLUME 8.1 fl (7.4-10.4); PLATELET 281 x1000/uL (130-400); RED CELL DISTRIBUTION WIDTH 16.2 % (11.6-14.6)
[2022-10-10] MEDS: LEVETIRACETAM 500MG/5ML CUP GT SCH ×2 (08:27→17:23)
[2022-10-10] MEDS: DIVALPROEX SODIUM 125MG SPRINKLE CAPSULE GT SCH (08:27)
[2022-10-10] MEDS ORDERED: VANCOMYCIN 1500MG in DEXTROSE 5% WATER 250ML IV NR (08:30)
[2022-10-10] MEDS ORDERED: PANTOPRAZOLE SODIUM 40 MG/VIAL IV SCH (09:00)
[2022-10-10 09:22] LABS: BG BASE EXCESS 6.9 mmol/L (-2.0-2.0); BG CARBOXYHEMOGLOBIN 0.3 % (0.5-1.5); BG DEOXYHEMOGLOBIN 2.4 % (0.0-5.0); BG FRACTION INSPIRED OXYGEN 35; BG HCO3 ACT 32.2 mmol/L (22.0-26.0); BG METHEMOGLOBIN 0.1 % (0.0-1.5); BG OXYGEN SATURATION 97.6 % (92.0-98.5); BG OXYHEMOGLOBIN 97.2 % (94.0-97.0); BG PCO2 49.5 mmHg (35.0-45.0); BG PH 7.431 (7.350-7.450); BG SAMPLE SITE RIGHT RADIAL; BG VENT MODE VENT - SIMV
[2022-10-10] MEDS: PIPERACILLIN/TAZOBACTAM 3.375 G in DEXTROSE 5% WATER 50 ML IV SCH ×2 (11:22→21:55)
[2022-10-10 14:19] LABS: PLATELET ESTIMATE NORMAL
[2022-10-10] MEDS: SUCRALFATE 1 G/10 ML UDC PO SCH ×2 (17:23→21:55)
[2022-10-10] MEDS: DEXT 5%/0.45% NACL 1000ML 1,000 ML IV SCH (18:48)
[2022-10-10] MEDS: PANTOPRAZOLE SODIUM 40 MG/VIAL IV SCH (21:55)
[2022-10-11] VITALS (13 sets, daily range): BP systolic 97–142; BP diastolic 54–88
[2022-10-11] MEDS: DILTIAZEM HCL 30MG TABLET PO SCH ×4 (00:35→17:24)
[2022-10-11] MEDS: ALBUTEROL (0.083%) 2.5MG/3ML NEB HHN SCH ×4 (02:04→20:15)
[2022-10-11] MEDS: IPRATROPIUM BROMIDE (0.02%) 0.5MG/2.5ML NEB HHN SCH ×4 (02:04→20:15)
[2022-10-11 04:50] LABS: HEMATOCRIT. 26.5 % (42.0-52.0); HEMOGLOBIN. 8.8 g/dL (14.0-18.0); MEAN CORPUSCULAR HEMOGLOBIN 28.6 pg (28.0-32.0); MEAN CORPUSCULAR VOLUME 86.4 fL (80.0-94.0); MEAN PLATELET VOLUME 7.6 fl (7.4-10.4); PLATELET 274 x1000/uL (130-400); RED BLOOD CELL COUNT 3.07 mill/uL (4.7-6.1); RED CELL DISTRIBUTION WIDTH 16.1 % (11.6-14.6)
[2022-10-11 04:58] LABS: INR 1.1; PROTHROMBIN TIME 11.7 sec (9.6-11.0)
[2022-10-11] MEDS: PIPERACILLIN/TAZOBACTAM 3.375 G in DEXTROSE 5% WATER 50 ML IV SCH ×3 (05:11→21:03)
[2022-10-11 06:22] LABS: FOLIC ACID (FOLATE) SERUM 17.6 ng/mL (>5.38)
[2022-10-11] MEDS: DIVALPROEX SODIUM 125MG SPRINKLE CAPSULE GT SCH (08:38)
[2022-10-11] MEDS: LEVETIRACETAM 500MG/5ML CUP GT SCH ×2 (08:38→17:22)
[2022-10-11] MEDS: SUCRALFATE 1 G/10 ML UDC PO SCH ×4 (08:38→21:03)
[2022-10-11] MEDS: PANTOPRAZOLE SODIUM 40 MG/VIAL IV SCH ×2 (08:38→21:03)
[2022-10-11] MEDS: DEXT 5%/0.45% NACL 1000ML 1,000 ML IV SCH ×2 (08:39→21:04)
[2022-10-11 08:55] LABS: BG BASE EXCESS 9.9 mmol/L (-2.0-2.0); BG CARBOXYHEMOGLOBIN 0.3 % (0.5-1.5); BG DEOXYHEMOGLOBIN 7.8 % (0.0-5.0); BG FRACTION INSPIRED OXYGEN 30; BG HCO3 ACT 33.3 mmol/L (22.0-26.0); BG OXYGEN SATURATION 92.2 % (92.0-98.5); BG OXYHEMOGLOBIN 91.9 % (94.0-97.0); BG PCO2 40.1 mmHg (35.0-45.0); BG PH 7.537 (7.350-7.450); BG PO2 60.4 mmHg (75.0-100.0); BG SAMPLE SITE RIGHT RADIAL; BG TOTAL HEMOGLOBIN 9.6 g/dL (12.0-18.0); BG VENT MODE VENT - SIMV
[2022-10-11] MEDS: VANCOMYCIN 1G PREMIX 200 ML IV SCH (10:03)
[2022-10-11] MEDS ORDERED: BISACODYL 10MG SUPP PR PRN (14:45)
[2022-10-11] MEDS ORDERED: LACTULOSE 20G/30ML UDC PO NR (14:45)
[2022-10-11 17:00] LABS: PLATELET ESTIMATE NORMAL
[2022-10-12] VITALS (11 sets, daily range): BP systolic 81–100; BP diastolic 50–61
[2022-10-12] MEDS: IPRATROPIUM BROMIDE (0.02%) 0.5MG/2.5ML NEB HHN SCH ×4 (00:53→20:27)
[2022-10-12] MEDS: ALBUTEROL (0.083%) 2.5MG/3ML NEB HHN SCH ×4 (00:54→20:27)
[2022-10-12] MEDS: DILTIAZEM HCL 30MG TABLET PO SCH ×4 (05:33→19:16)
[2022-10-12] MEDS: PIPERACILLIN/TAZOBACTAM 3.375 G in DEXTROSE 5% WATER 50 ML IV SCH ×3 (05:36→22:00)
[2022-10-12 06:13] LABS: BASOPHILS % 0.5 % (0.0-2.0); EOSINOPHILS % 2.3 % (0.0-5.0); HEMATOCRIT. 26.6 % (42.0-52.0); HEMOGLOBIN. 8.6 g/dL (14.0-18.0); LYMPHOCYTES % 7.1 % (20.0-50.0); MEAN CORPUSCULAR HEMOGLOBIN 28.4 pg (28.0-32.0); MEAN CORPUSCULAR VOLUME 88.1 fL (80.0-94.0); MONOCYTES % 9.9 % (2.0-8.0); NEUTROPHILS % 80.2 % (40.0-76.0); PLATELET 265 x1000/uL (130-400); RED BLOOD CELL COUNT 3.02 mill/uL (4.7-6.1); RED CELL DISTRIBUTION WIDTH 16.2 % (11.6-14.6)
[2022-10-12] MEDS: LEVETIRACETAM 500MG/5ML CUP GT SCH ×2 (08:14→19:15)
[2022-10-12] MEDS: DIVALPROEX SODIUM 125MG SPRINKLE CAPSULE GT SCH (08:14)
[2022-10-12] MEDS: PANTOPRAZOLE SODIUM 40 MG/VIAL IV SCH ×2 (08:14→22:47)
[2022-10-12] MEDS: SUCRALFATE 1 G/10 ML UDC PO SCH ×4 (08:14→22:47)
[2022-10-12] MEDS ORDERED: DOCUSATE SODIUM SUGAR FREE 100MG/10ML UDC GT SCH (09:00)
[2022-10-12] MEDS: VANCOMYCIN 1G PREMIX 200 ML IV SCH (11:10)
[2022-10-12] MEDS: DEXT 5%/0.45% NACL 1000ML 1,000 ML IV SCH (11:11)
== END 2022-10-13 03:49 | disposition short-term general hospital (02) | DRG 378 ==
LOC: ER 16:08 → EDBEDREQSVC 22:32 → MICUSO 23:21 → 5EST 10-09 09:06
PROVIDERS: ADMIT Internal Medicine; ATTEND Internal Medicine
PROC: 5A1945Z Respiratory Ventilation, 24-96 Consecutive Hours (ICD-10-PCS; principal; 2022-10-08)
DX: K92.2 Gastrointestinal hemorrhage, unspecified (principal); E44.0 Moderate protein-calorie malnutrition; Z99.11 Dependence on respirator [ventilator] status; J96.10 Chronic respiratory failure, unspecified whether with hypoxia or hypercapnia; N17.9 Acute kidney failure, unspecified; D64.9 Anemia, unspecified; F20.9 Schizophrenia, unspecified; E78.00 Pure hypercholesterolemia, unspecified; I48.91 Unspecified atrial fibrillation; D72.825 Bandemia; G40.909 Epilepsy, unspecified, not intractable, without status epilepticus; K42.9 Umbilical hernia without obstruction or gangrene; Z20.822 Contact with and (suspected) exposure to COVID-19; K21.9 Gastro-esophageal reflux disease without esophagitis; I12.9 Hypertensive chronic kidney disease with stage 1 through stage 4 chronic kidney disease, or unspecified chronic kidney disease; N18.9 Chronic kidney disease, unspecified; F32.A Depression, unspecified; F41.9 Anxiety disorder, unspecified; R13.10 Dysphagia, unspecified; Z93.1 Gastrostomy status; Z88.8 Allergy status to other drugs, medicaments and biological substances; Z68.31 Body mass index [BMI] 31.0-31.9, adult; Z86.718 Personal history of other venous thrombosis and embolism; Z87.891 Personal history of nicotine dependence
CPT/HCPCS: 36415; 36600; 71045; 74018; 80048; 80053; 80202; 80320; 82375; 82607; 82728; 82746; 82805; 83540; 83550; 83605; 84484; 85025; 85044; 86850; 86900; 87426; 90686; 90732; 93005; 94002; 94003; 94640; 99291; C1893; C9113; J0696; J1160; J2405; J2543; J3370; J7030; J7060; G0480